=== PATIENT | female | born 1970 | race Caucasian/White ===

== ENCOUNTER 2017-10-09 20:47 | Emergency (ER) | payer BC ==
[~2017-10-09] VITALS: Ht 170.2 cm; Wt 91.9 kg
[~2017-10-09 20:47] MED LIST: BUTALB-APAP-CA1 EACH PO; INDOCIN50 MG PO; NAPROSYN500 MG PO; NORCO 5/3251 TABLET PO; PAROXETINE HCL10 MG PO; TRIAMTERENE-HC1 EAC1 PO; VERAPAMIL HCL180 MG PO; VERELAN 120 MG120 MG PO; VOLTAREN75 MG PO; WELLBUTRIN100 MG PO
[2017-10-09 21:17] LABS: HEMATOCRIT 42.8 % (36.0-46.0); HEMOGLOBIN 14.5 G/DL (11.9-15.5); MCH 33.2 PG (29.0-34.0); MCHC 33.9 G/DL (30.0-36.0); MCV 97.9 FL (83-99); PLATELET COUNT 289 K/uL (156-360); RBC DIS.WIDTH-CV 11.7 % (11.8-14.6); RBC DIS.WIDTH-SD 42.5 % (39-53); RED BLOOD COUNT 4.37 M/uL (3.80-5.20); WHITE BLOOD COUNT 7.4 K/uL (4.1-10.2)
[2017-10-09 21:32] LABS: ALBUMIN 4.2 g/dL (3.2-4.8); CHLORIDE 104 mEq/L (99-109); POTASSIUM 3.2 mEq/L (3.7-5.4); SODIUM 140 mEq/L (136-147)
[2017-10-09 21:34] LABS: GLUCOSE 125 mg/dL (70-99); TOTAL PROTEIN 7.2 g/dL (6.4-8.3)
[2017-10-09 21:36] LABS: TOTAL BILIRUBIN 0.2 mg/dL (0.0-1.0)
[2017-10-09 21:38] LABS: ALKALINE PHOSPHATASE 68 IU/L (3-129); CREATININE 0.9 mg/dL (0.6-1.3); GFR ESTIMATE (CALCULATED) > 59 mL/min/
[2017-10-09 21:39] LABS: UREA NITROGEN (BUN) 15 mg/dL (9-23)
[2017-10-09 21:40] LABS: AST (GOT) 24 IU/L (2-34)
[2017-10-09 21:41] LABS: ALT (GPT) 34 IU/L (3-49)
[2017-10-09 21:48] LABS: QUANTITATIVE HCG < 4.0 MIU/ML
[2017-10-09 21:53] LABS: APPEARANCE SL.HAZY ((CLEAR)); BILIRUBIN NEGATIVE; BLOOD SMALL; COLOR YELLOW ((YELLOW)); GLUCOSE (STRIP) NEGATIVE; KETONES NEGATIVE; LEUKOCYTES NEGATIVE; NITRITE NEGATIVE; PROTEIN (STRIP) NEGATIVE; SPECIFIC GRAVITY 1.013 (1.000-1.030); UROBILINOGEN 0.2 MG/DL (0.2-1.0)
[2017-10-09 22:01] LABS: BACTERIA 2+ /HPF; EPITHELIAL CELLS 1+ /HPF; MUCUS NONE SEEN /LPF; RED BLOOD CELLS 0-5 /HPF (0-5); UCUL ADDED? YES; WHITE BLOOD CELLS 0-5 /HPF (0-5)
[2017-10-10] MEDS ORDERED: KEFLEX500 MG PO (02:02)
[2017-10-10 02:37] VITALS: BP 103/62
== END 2017-10-10 02:47 | disposition home or self-care (01) ==
LOC: EME 20:47
DX: N39.0 Urinary tract infection, site not specified (principal); R10.32 Left lower quadrant pain; E87.6 Hypokalemia; F32.9 Major depressive disorder, single episode, unspecified; F41.9 Anxiety disorder, unspecified; Z90.49 Acquired absence of other specified parts of digestive tract; Z88.5 Allergy status to narcotic agent
CPT/HCPCS: 74177; 80053; 81003; 84702; 85027; 87086; 99281; 99285; J3010; J7030

== ENCOUNTER 2018-01-01 20:04 | Observation (INO) | payer BC ==
[~2018-01-01] VITALS: Ht 170.2 cm; Wt 95.2 kg
[~2018-01-01 20:04] MED LIST changes: +KEFLEX500 MG PO
[2018-01-01 21:14] LABS: HEMATOCRIT 42.8 % (36.0-46.0); HEMOGLOBIN 14.7 G/DL (11.9-15.5); MCH 33.3 PG (29.0-34.0); MCHC 34.3 G/DL (30.0-36.0); MCV 96.8 FL (83-99); PLATELET COUNT 307 K/uL (156-360); RBC DIS.WIDTH-CV 12.6 % (11.8-14.6); RBC DIS.WIDTH-SD 45.2 % (39-53); RED BLOOD COUNT 4.42 M/uL (3.80-5.20); WHITE BLOOD COUNT 7.7 K/uL (4.1-10.2)
[2018-01-01 21:29] LABS: CHLORIDE 99 MEQ/L (99-109); POTASSIUM 3.5 MEQ/L (3.7-5.4); SODIUM 137 MEQ/L (136-147)
[2018-01-01 21:34] LABS: GFR ESTIMATE (CALCULATED) > 59 mL/min/; GLUCOSE 113 mg/dL (70-99); UREA NITROGEN (BUN) 16 mg/dL (9-23)
[2018-01-01 21:39] LABS: TROP-I INTERPRETATION NEGATIVE; TROPONIN-I < 0.01 ng/mL (0.0-0.30)
[2018-01-01] MEDS ORDERED: ALPRAZOLAM0.5 MG PO (22:54)
[2018-01-01] MEDS ORDERED: BUPROPION XL300 MG PO (22:55)
[2018-01-01] MEDS ORDERED: MAXZIDE 75/501 EACH PO (22:55)
[2018-01-01] MEDS ORDERED: PRAVASTATIN SOD80 MG PO (22:56)
[2018-01-01] MEDS ORDERED: IBUPROFEN800 MG PO (22:57)
[2018-01-02 00:33] VITALS: BP 124/85
[2018-01-02 04:38] LABS: APPEARANCE CLEAR ((CLEAR)); BILIRUBIN NEGATIVE; BLOOD SMALL; COLOR STRAW ((YELLOW)); GLUCOSE (STRIP) NEGATIVE; KETONES NEGATIVE; LEUKOCYTES NEGATIVE; NITRITE NEGATIVE; PROTEIN (STRIP) NEGATIVE; SPECIFIC GRAVITY 1.011 (1.000-1.030); UROBILINOGEN 0.2 MG/DL (0.2-1.0)
[2018-01-02 04:40] LABS: BACTERIA NONE SEEN /HPF; EPITHELIAL CELLS RARE /HPF; MUCUS NONE SEEN /LPF; RED BLOOD CELLS 0-5 /HPF (0-5); UCUL ADDED? NO; WHITE BLOOD CELLS 0-5 /HPF (0-5)
[2018-01-02 05:37] LABS: BENZODIAZEPINES, URINE SCREEN Negative (200 ng/mL)
[2018-01-02 05:43] LABS: TROP-I INTERPRETATION NEGATIVE; TROPONIN-I < 0.01 ng/mL (0.0-0.30)
[2018-01-02 07:54] VITALS: BP 108/71
[2018-01-02 10:08] LABS: TROP-I INTERPRETATION NEGATIVE; TROPONIN-I < 0.01 ng/mL (0.0-0.30)
[2018-01-02] MEDS ORDERED: FAMOTIDINE20 MG PO (10:14)
[2018-01-02 10:25] LABS: ALBUMIN 4.3 G/DL (3.2-4.8); ALKALINE PHOSPHATASE 60 IU/L (3-129); ALT (GPT) 41 IU/L (3-49); AST (GOT) 47 IU/L (2-34); TOTAL BILIRUBIN 0.5 MG/DL (0.0-1.0); TOTAL PROTEIN 7.4 G/DL (6.4-8.3)
[2018-01-02 11:25] VITALS: BP 116/72
[2018-01-02 11:30] LABS: LIPASE 72 U/L (1.0-51.0); SERUM ETHYL ALCOHOL < 10 mg/dL
== END 2018-01-02 12:12 | disposition home or self-care (01) ==
LOC: EME 20:04 → EDOF 23:16 → 4SOUTH 23:16 → EDOF 23:16 → ENRESERV 23:18 → 4SOUTH 01-02 00:23
PROVIDERS: Physician Assistant Medical
DX: R07.89 Other chest pain (principal); I10 Essential (primary) hypertension; E78.5 Hyperlipidemia, unspecified; E66.9 Obesity, unspecified; Z68.34 Body mass index [BMI] 34.0-34.9, adult; R11.2 Nausea with vomiting, unspecified; R19.7 Diarrhea, unspecified; G43.909 Migraine, unspecified, not intractable, without status migrainosus; F41.9 Anxiety disorder, unspecified; F32.9 Major depressive disorder, single episode, unspecified; Z90.49 Acquired absence of other specified parts of digestive tract; Z87.891 Personal history of nicotine dependence; Z82.49 Family history of ischemic heart disease and other diseases of the circulatory system; F19.11 Other psychoactive substance abuse, in remission; Z91.048 Other nonmedicinal substance allergy status; Z88.5 Allergy status to narcotic agent
CPT/HCPCS: 71046; 74019; 80048; 80076; 80306 90; 81003; 83630; 83690; 84132; 84484; 85027; 87177; 87493; 87506; 93005; 99281; 99285; G0378; G0480

== ENCOUNTER 2018-02-06 05:39 | Day surgery (SDC) | payer BC ==
[~2018-02-06] VITALS: Ht 170.2 cm; Wt 90.7 kg
[~2018-02-06 05:39] MED LIST changes: +ADVIL200 MG PO; +ALPRAZOLAM0.5 MG PO; +BUPROPION XL300 MG PO; +FAMOTIDINE20 MG PO; +IBUPROFEN800 MG PO; +MAXZIDE 75/501 EACH PO; +PEPCID20 MG PO; +PRAVACHOL80 MG PO; +PRAVASTATIN SOD80 MG PO; +WELLBUTRIN XL300 MG PO
[2018-02-06] MEDS ORDERED: VITAMIN D5000 UNI1 PO (06:04)
[2018-02-06 06:06] VITALS: BP 134/85
[2018-02-06 12:23] VITALS: BP 119/69
[2018-02-06 15:33] VITALS: BP 117/61
[2018-02-06 19:41] VITALS: BP 128/71
[2018-02-06 23:50] VITALS: BP 124/66
[2018-02-07 03:27] VITALS: BP 124/68
[2018-02-07 06:48] LABS: BASOPHIL (%) 0.1 % (0-1); EOSINOPHIL (%) 0 % (0-5); HEMATOCRIT 37.2 % (36.0-46.0); IMMATURE GRANULOCYTE (%) 0.6 % (0.0-0.7); LYMPHOCYTE (%) 12.4 % (15-42); LYMPHOCYTE COUNT 1.8 K/uL (1.0-2.8); MCH 32.4 PG (29.0-34.0); MCHC 33.3 G/DL (30.0-36.0); MCV 97.1 FL (83-99); MONOCYTE (%) 6.9 % (3-12); NEUTROPHIL COUNT 11.3 K/uL (1.8-6.4); PLATELET COUNT 255 K/uL (156-360); RBC DIS.WIDTH-CV 12.8 % (11.8-14.6); RBC DIS.WIDTH-SD 45.3 % (39-53); RED BLOOD COUNT 3.83 M/uL (3.80-5.20); WHITE BLOOD COUNT 14.2 K/uL (4.1-10.2)
[2018-02-07 06:49] LABS: HEMOGLOBIN 12.4 G/DL (11.9-15.5)
[2018-02-07 07:11] LABS: CHLORIDE 104 MEQ/L (99-109); CREATININE 0.7 MG/DL (0.6-1.3); GFR ESTIMATE (CALCULATED) > 59 mL/min/; GLUCOSE 193 mg/dL (70-99); POTASSIUM 3.7 MEQ/L (3.7-5.4); SODIUM 137 MEQ/L (136-147); UREA NITROGEN (BUN) 15 mg/dL (9-23)
[2018-02-07 08:13] VITALS: BP 119/69
== END 2018-02-07 09:55 | disposition home or self-care (01) ==
LOC: SDC 05:39 → 2SOUTH 10:15 → 2EAST 10:15 → ENRESERV 10:41 → SDC 11:26 → 2EAST 12:05 → SDC 14:28 → 2EAST 02-07 09:55
PROVIDERS: Obstetrics & Gynecology Gynecology
DX: D25.1 Intramural leiomyoma of uterus (principal); N80.0 Endometriosis of uterus; N83.8 Other noninflammatory disorders of ovary, fallopian tube and broad ligament; N73.6 Female pelvic peritoneal adhesions (postinfective); I10 Essential (primary) hypertension; K21.9 Gastro-esophageal reflux disease without esophagitis; F41.8 Other specified anxiety disorders; E78.5 Hyperlipidemia, unspecified; E66.9 Obesity, unspecified; Z68.31 Body mass index [BMI] 31.0-31.9, adult; Z87.891 Personal history of nicotine dependence
CPT/HCPCS: 80048; 85025; 87086; G0378; J0690; J1100; J1170; J1644; J1885; J2001; J2250; J2405; J2704; J2710; J3475; J7120; J7643